=== PATIENT | male | born 1945 | race Caucasian/White ===

== ENCOUNTER 2023-12-21 08:12 | Outpatient (AMB) | payer MEDICARE, SELFPAY ==
--- NOTE | 2023-12-21 08:15 | A.OFFVIS_ITS ---
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 The patient describes his back pain as sharp and severe in nature. Pain has gotten worse over the last 6 months in spite of continued non operative treatments. He has failed the last 6 weeks of conservative treatment. Has tried Tylenol, anti- inflammatory medicines and a Medrol Dosepak which gave him minimal relief. He has also done physical therapy which aggravated his pain. The patient also reports intermittent weakness in his right leg. He denies any groin pain. Allergies contrast dye Adverse Reaction (Severe, Uncoded 12/21/23 08:22) Anaphylaxis Physical Exam Vital Signs: BMI result Body Mass Index 27.5 Const Other: Well-nourished well-developed very friendly male awake alert and oriented x3 in no acute distress Back/Spine/Pelvis Other: Low back examination shows right-sided paraspinal muscle tenderness, pain with range of motion, positive straight leg raise test on the right at 70 degrees, 4/5 strength with testing of his right hip flexors and knee extensors when compared to 5/5 strength on his left side Extrem Other: Right hip examination shows full range of motion when compared to his left hip, mild tenderness over his bursa, no overlying skin lesions Results Reviewed Results Reviewed: X-rays of the patient's right hip show mild diffuse joint space narrowing, no acute bony abnormalities Assessment & Plan Assessment & Plan (1) Low back pain radiating to right leg: Code(s): M54.50 - Low back pain, unspecified; M79.604 - Pain in right leg Category: Medical (2) Right hip pain: Code(s): M25.551 - Pain in right hip Category: Medical Plan Mr. Chung presents with progressively worsening low back pain which radiates down his right leg as well as associated right leg weakness most likely due to lumbar stenosis or a disc herniation. Thus, I will send the patient for an MRI of his lumbar spine for further evaluation. I will contact him by phone once the MRI results are available. He will call me prior to that time should his symptoms worsen in any way. I did give him a prescription for tramadol to help with his pain in the meantime. Feel free to call me at any time should questions regarding his orthopedic management arise. I spent 20 minutes in reviewing the patient's records and imaging studies, seeing the patient and documenting in the medical record. Orders: Orders XR hip RT min 2V Today M25.551 - Pain in right hip MR lumbar spine wo con Today M54.50 - Low back pain, unspecified, M79.604 - Pain in right leg Medications: New tramadol 50 mg PO Q8H PRN 60 tabs 0RF pain Coding Level of Care Code Est Pt Level 3 (89362) Diagnoses Low back pain radiating to right leg M54.50; M79.604 Right hip pain M25.551
[2023-12-21 08:20] VITALS: BMI 27.5
== END 2023-12-21 08:35 | disposition home or self-care (01) ==
PROVIDERS: PCP Internal Medicine; Visit Provider Orthopaedic Surgery
DX: M54.50 Low back pain, unspecified (principal); M79.604 Pain in right leg; M25.551 Pain in right hip
CPT/HCPCS: 99204

== ENCOUNTER 2023-12-21 16:29 | Outpatient (REF) | payer MEDICARE, SELFPAY ==
--- NOTE | ~2023-12-21 | XR_ITS ---
EXAMINATION: XR HIP, RIGHT CLINICAL INFORMATION: Right hip pain COMPARISON: None available. TECHNIQUE: AP pelvis and frog-leg lateral views of the right hip. 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 Joint spaces appear well-preserved. Minimal osteoarthritis in the sacroiliac joints. No fracture or malalignment. Soft tissues are unremarkable. Enthesopathic spurring at the greater trochanters and anterior superior iliac spines. 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 No acute osseous findings. Electronically signed by: Kenny Heath MD 12/27/2023 09:20 AM EDT
== END 2023-12-21 16:30 | disposition home or self-care (01) ==
LOC: HO.HOSX 16:29
PROVIDERS: Visit Provider Orthopaedic Surgery
DX: M16.11 Unilateral primary osteoarthritis, right hip (principal); M46.1 Sacroiliitis, not elsewhere classified
CPT/HCPCS: 73502; 99202

== ENCOUNTER 2024-01-20 13:45 | Outpatient (AMB) | payer MEDICARE, SELFPAY ==
--- NOTE | 2024-01-20 14:01 | HO.SPINEOV ---
Intake Visit Reasons: lumbar stenosis Intake Note: Mr. Chung is here today c/o low back pain. Community Marketing Coordinator Required: No Allergies contrast dye Adverse Reaction (Severe, Uncoded 12/21/23 08:22) Anaphylaxis Assessment & Plan Assessment & Plan (1) Low back pain radiating to right leg: Code(s): M54.50 - Low back pain, unspecified; M79.604 - Pain in right leg Category: Medical Plan Dear Dr Soto, Thank you for referring Mr Cuhng to our office today. He is a 78-year-old gentleman presents to the office today for evaluation of what was a severe right leg radiculopathy that started in November. At the time it began it was intense like 10/10 pain going down into his anterior thigh. At that time, he was incapacitated by the pain and barely able to walk. He was given anti-inflammatories, reassured. He was also given tramadol and that did seem to give him some relief. Thankfully the pain went away after about 2 weeks and he is following up here in the office today to discuss possible diagnosis and if surgery is needed. Over the course of his treatment, he had been doing some home physical therapy exercises that he had been prescribed years ago by a chiropractor. No formal PT. no cortisone injections etc.. PMH: He is reasonably healthy for his age, he had an aortic valve replaced, it appears though was done with some kind of percutaneous approach and also had a TURP. Other than that he is healthy. Social hx: He does not smoke, drink or use any recreational drugs Medications: Low-dose aspirin and vitamin-D Allergies: Contrast dye Physical exam: Awake alert oriented no acute distress, strength and reflexes normal in the lower extremities. Imaging review: Lumbar MRI done at the [facility] shows some mild degenerative disc disease, although the radiologist is not reported I think there is probably moderate stenosis of the bilateral L4 foramen. Impression: 78-year-old male who had a lumbar radiculopathy maybe for 6 weeks ago that lasted for 2 weeks and went away on its own. He has a little bit of residual pain into his anterior thigh but nothing significant now. He is back to doing a lot of his normal activities but not everything yet. It sounds like it was the L4 dermatome and I suspect it came from the L4 foramen where there is a little more narrowing than the radiologist suggests. I do not see an acute herniated disc in this area but I think this is where the symptoms were coming from. I am not sure why it acted up but thankfully it is gone away for the most part. Typically 90% of these kind of flare-ups will go away with time. He does not need any surgery or any further intervention. We discussed activity guidelines, restrictions and progression back to normal activities. He can come back and see us if the pain returns and we can reassess. Thank you for allowing us to care for your patient. The total time spent with this visit with this patient was 45 minutes reviewing history, physical exam, lumbar imaging review, and implementation of treatment plan or further diagnostic testing Raheem Calr MD,PhD [facility] Coding Level of Care Code New Pt Level 4 (46431) Diagnoses Low back pain radiating to right leg M54.50; M79.604
== END 2024-01-20 14:42 | disposition home or self-care (01) ==
PROVIDERS: PCP Internal Medicine; Referring Provider Orthopaedic Surgery; Visit Provider Physician Assistant
DX: M54.50 Low back pain, unspecified (principal); M79.604 Pain in right leg
CPT/HCPCS: 99204

== ENCOUNTER → 2024-01-20 13:45 | Outpatient (BNVA) | payer MEDICARE, SELFPAY | PROVIDERS: PCP Internal Medicine; Visit Provider Physician Assistant | DX: M54.50 Low back pain, unspecified (principal); M79.604 Pain in right leg | CPT/HCPCS: 99202 ==

== ENCOUNTER 2024-02-22 14:18 | Outpatient (AMB) | payer MEDICARE, SELFPAY ==
--- NOTE | 2024-02-22 14:20 | MHC.OFFVIS ---
Intake Visit Reasons: New prob- right shoulder pain Intake Note: Smooth is a 79 year old male who presents with complaints of progressively worsening right shoulder pain. The patient describes his pain as sharp in nature. He has had cortisone injections given into his right shoulder in the past which gave him fairly good relief. He denies any weakness. He has done physical therapy exercises which aggravated his pain. He has tried Tylenol and anti-inflammatory medicines which gave him minimal relief. He would like to hold off on surgery if at all possible. Allergies contrast dye Adverse Reaction (Severe, Uncoded 12/21/23 08:22) Anaphylaxis Medication List - Last Reviewed 02/22/24 by Aidan Bar lorazepam (Ativan) 1 mg PO ONCE tramadol 50 mg PO Q8H PRN Physical Exam Const Other: Well-nourished well-developed very friendly male awake alert and oriented x3 in no acute distress Extrem Other: Bilateral upper extremity examination shows good capillary refill, no skin lesions noted, normal sensation light touch Right shoulder examination shows almost full range of motion when compared to his left shoulder, 4/5 strength with supraspinatus testing, positive impingement signs, tenderness over his acromioclavicular joint, no instability Office Procedures AMB Joint Injection/Aspiration Joint Injection/Aspiration Primary Site: right shoulder Prep: site was prepped using aseptic technique Injected: 40 mg of, DepoMedrol and 1% plain lidocaine Procedure: The patient tolerated the procedure well Coding 59916 - Large joint Procedure code (CPT) selection complete Results Reviewed Results Reviewed: X-rays of the patient's right shoulder show severe acromioclavicular joint narrowing, a type 2 acromion, no acute bony abnormalities Assessment & Plan Assessment & Plan (1) Impingement of right shoulder: Code(s): M25.811 - Other specified joint disorders, right shoulder Category: Medical Plan Mr. Chung presents with right shoulder pain due to impingement syndrome, acromioclavicular joint arthritis and possible rotator cuff tearing. I had a lengthy discussion with the patient regarding the treatment options. The risks and benefits of a right shoulder cortisone injection were discussed at length with the patient. The patient wished to proceed. He tolerated the injection well. He will continue with his home exercise program. He will contact me prior to his follow-up appointment in 3 months should any questions or concerns arise. Feel free to call me at any time should questions regarding his orthopedic management arise. I spent 21 minutes in reviewing the patient's records and imaging studies, seeing the patient and documenting in the medical record. Orders: Orders AMB Joint Injection/Aspiration 02/22/24 M25.811 - Other specified joint disorders, right shoulder XR shoulder RT min 2V 02/22/24 M25.511 - Pain in right shoulder Coding Level of Care Code Est Pt Level 3 (90631) Complex EM visit Add On G2211 Diagnoses Impingement of right shoulder M25.811 CPT Codes Coding - 33147 Large joint: 52836 - Large joint ([id number])
== END 2024-02-22 14:54 | disposition home or self-care (01) ==
LOC: HO.HOS 14:19
PROVIDERS: PCP Internal Medicine; Visit Provider Orthopaedic Surgery
DX: M25.811 Other specified joint disorders, right shoulder (principal)
CPT/HCPCS: 20610; 99213

== ENCOUNTER 2024-02-22 15:35 | Outpatient (REF) | payer MEDICARE, SELFPAY | END 2024-02-22 15:36 | disposition home or self-care (01) | LOC: HO.HOSX 15:35 | PROVIDERS: Visit Provider Orthopaedic Surgery | DX: M25.811 Other specified joint disorders, right shoulder (principal); M25.511 Pain in right shoulder | CPT/HCPCS: 20610; 73030; 99212; J1010; J2003 ==